=== PATIENT | male | born 1990 | race Caucasian/White ===

== ENCOUNTER 2023-04-15 12:32 | Emergency (ER) | payer OTHER ==
[2023-04-15] MEDS ORDERED: DIPH,PERTUS(ACELL)TETVAC-LF 0.5 ML VIAL IM ONE (12:55)
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
[2023-04-15 15:48] VITALS: BP 124/70; PULSE 72; RESP 18; TEMP 98
== END 2023-04-15 15:22 | disposition home or self-care (01) ==
LOC: EC 12:32
DX: S92.301A Fracture of unspecified metatarsal bone(s), right foot, initial encounter for closed fracture (principal); S00.83XA Contusion of other part of head, initial encounter; F17.290 Nicotine dependence, other tobacco product, uncomplicated; Z23 Encounter for immunization; Y04.0XXA Assault by unarmed brawl or fight, initial encounter
CPT/HCPCS: 29125; 70486; 90471; 90715; 99284